=== PATIENT | male | born 1945 | race Two or more races ===

== ENCOUNTER → 2024-07-15 | Outpatient (CLI) | payer OTHER, SELFPAY ==
--- NOTE | 2024-07-15 15:59 | XR_ITS ---
Examination: Shoulder,left, 3 views Technique: Shoulder AP internal rotation, AP external rotation, Y view shoulder, 3 views Exam date and time :July 15, 2024 1609 hours INDICATIONS: Left shoulder pain after falling 2 days ago FINDINGS: Severe osteopenia Masslike area with irregular margins in the left upper lobe No shoulder fracture or dislocation Moderate narrowing glenohumeral joint IMPRESSION: No shoulder fracture or dislocation Recommend PA lateral chest follow-up to assess masslike area in the left upper lobe
== END | disposition home or self-care (01) ==
LOC: CDIM 15:46
PROVIDERS: PCP Nurse Practitioner Primary Care; Referring Provider Nurse Practitioner Family; Visit Provider Nurse Practitioner Family
DX: S46.012A Strain of muscle(s) and tendon(s) of the rotator cuff of left shoulder, initial encounter (principal); W19.XXXA Unspecified fall, initial encounter
CPT/HCPCS: 73030